=== PATIENT | male | born 1950 | race Caucasian/White ===

== ENCOUNTER 2020-11-11 00:34 | Inpatient (IN) | payer OTHER, MEDICAID ==
[~2020-11-11] VITALS: Ht 167.6 cm; Wt 83.5 kg
[2020-11-11] VITALS (37 sets, daily range): BP systolic 73–136; BP diastolic 48–89
[2020-11-11] MEDS ORDERED: PIPERACILLIN/TAZOBACTAM 3.375GM/50ML PREMIX IV ONE (01:00)
[2020-11-11] MEDS ORDERED: VANCOMYCIN 1 G PREMIX 200 ML IV SCH ×2 (01:00→12:00)
[2020-11-11] MEDS ORDERED: PIPERACILLIN/TAZ 3.375G PREMIX 50 ML IV NR (01:15)
[2020-11-11 01:24] LABS: HEMATOCRIT. 29.9 % (42.0-52.0); HEMOGLOBIN. 9.7 g/dL (14.0-18.0); MEAN CORPUSCULAR HEMOGLOBIN 29.6 pg (28.0-32.0); MEAN CORPUSCULAR VOLUME 91.7 fL (80.0-94.0); MEAN PLATELET VOLUME 8.9 fl (7.4-10.4); PLATELET 608 x1000/uL (130-400); RED BLOOD CELL COUNT 3.26 mill/uL (4.7-6.1); RED CELL DISTRIBUTION WIDTH 21.1 % (11.6-14.6)
[2020-11-11 01:29] LABS: CHLORIDE 108 mEq/L (98-107)
[2020-11-11 01:51] LABS: INR 1.2
[2020-11-11 02:08] LABS: BG BASE EXCESS -0.1 mmol/L (-2.0-2.0); BG CARBOXYHEMOGLOBIN 1.1 % (0.5-1.5); BG DEOXYHEMOGLOBIN 1.9 % (0.0-5.0); BG FRACTION INSPIRED OXYGEN 100; BG METHEMOGLOBIN 0.4 % (0.0-1.5); BG OXYGEN SATURATION 98.1 % (92.0-98.5); BG OXYHEMOGLOBIN 96.6 % (94.0-97.0); BG PCO2 85.3 mmHg (35.0-45.0); BG PH 7.164 (7.350-7.450); BG PO2 123.1 mmHg (75.0-100.0); BG SAMPLE SITE RIGHT RADIAL; BG TOTAL HEMOGLOBIN 10.4 g/dL (12.0-18.0); BG VENT MODE MASK - NRB
[2020-11-11] MEDS ORDERED: IOHEXOL-300 100 ML BOTTLE ONE (03:06)
[2020-11-11] MEDS ORDERED: SUCCINYLCHOLINE CHLORIDE 200MG/10ML IV ONE (03:15)
[2020-11-11] MEDS ORDERED: ETOMIDATE 2MG/ML 10ML VIAL IV ONE (03:15)
[2020-11-11 03:51] LABS: CLARITY URINE CLOUDY (CLEAR); COLOR URINE DARK YELLOW (YELLOW); KETONES URINE NEGATIVE (NEGATIVE); LEUKOCYTE ESTERASE URINE 1+ (NEGATIVE); NITRITE URINE POSITIVE (NEGATIVE); OCCULT BLOOD URINE 3+ (NEGATIVE); PH URINE 5.5 (4.5-8.0); PROTEIN URINE 1+ (NEGATIVE); SPECIFIC GRAVITY URINE 1.027 (1.005-1.030); UROBILINOGEN URINE 0.2 E.U./dL (0.2-1.0)
[2020-11-11] MEDS ORDERED: PROPOFOL 10MG/ML 100ML 100 ML IV SCH (04:15)
[2020-11-11 05:02] LABS: BG BASE EXCESS 0.2 mmol/L (-2.0-2.0); BG CARBOXYHEMOGLOBIN 0.9 % (0.5-1.5); BG FRACTION INSPIRED OXYGEN 50; BG METHEMOGLOBIN 0.2 % (0.0-1.5); BG OXYHEMOGLOBIN 94.9 % (94.0-97.0); BG PCO2 54.6 mmHg (35.0-45.0); BG PH 7.312 (7.350-7.450); BG SAMPLE SITE RIGHT RADIAL; BG VENT MODE VENT - AC
[2020-11-11] MEDS ORDERED: MIDAZOLAM HCL 2 MG/2 ML VIAL IV ONE ×2 (05:30→07:00)
[2020-11-11 08:12] LABS: NUCLEATED RED BLOOD CELLS 1 /100 WBC; PLATELET ESTIMATE INCREASED
[2020-11-11] MEDS ORDERED: FENTANYL CITRATE/PF 2,500 MCG in SODIUM CHLORIDE 0.9% 200 ML IV PRN ×2 (08:15→08:30)
[2020-11-11] MEDS ORDERED: MIDAZOLAM HCL 100 MG in SODIUM CHLORIDE 0.9% 80 ML IV PRN ×2 (08:15→08:30)
[2020-11-11] MEDS ORDERED: IPRATROPIUM/ALBUTEROL 0.5-3(2.5)MG/3ML NEB HHN PRN (09:15)
[2020-11-11] MEDS ORDERED: PIPERACILLIN/TAZOBACTAM 3.375 G in DEXT 5% WATER 100 ML IV SCH (10:00)
[2020-11-11] MEDS ORDERED: MICAFUNGIN 150 MG in SODIUM CHLORIDE 0.9% 100 ML IV SCH (10:00)
[2020-11-11] MEDS: PANTOPRAZOLE SODIUM 40 MG/VIAL IV SCH (10:18)
[2020-11-11] MEDS: IPRATROPIUM/ALBUTEROL 0.5-3(2.5)MG/3ML NEB HHN SCH ×3 (11:56→20:55)
[2020-11-11] MEDS: NOREPINEPHRINE 32 MG in DEXT 5% WATER 218 ML IV PRN (14:57)
[2020-11-11] MEDS: ACETYLCYSTEINE 100MG/ML 10% VIAL 4ML INH SCH (16:02)
[2020-11-11] MEDS: PIPERACILLIN/TAZOBACTAM 3.375 G in DEXT 5% WATER 100 ML IV SCH ×2 (18:50→23:24)
[2020-11-12] VITALS (61 sets, daily range): BP systolic 55–109; BP diastolic 38–73
[2020-11-12] MEDS: ACETYLCYSTEINE 100MG/ML 10% VIAL 4ML INH SCH ×3 (00:37→16:00)
[2020-11-12] MEDS: IPRATROPIUM/ALBUTEROL 0.5-3(2.5)MG/3ML NEB HHN SCH ×5 (00:38→16:00)
[2020-11-12] MEDS: PIPERACILLIN/TAZOBACTAM 3.375 G in DEXT 5% WATER 100 ML IV SCH ×2 (05:21→13:00)
[2020-11-12 06:14] LABS: HEMATOCRIT. 32.8 % (42.0-52.0); HEMOGLOBIN. 10.2 g/dL (14.0-18.0); MEAN CORPUSCULAR HEMOGLOBIN 29.4 pg (28.0-32.0); MEAN CORPUSCULAR VOLUME 94.7 fL (80.0-94.0); MEAN PLATELET VOLUME 9.4 fl (7.4-10.4); PLATELET 579 x1000/uL (130-400); RED BLOOD CELL COUNT 3.47 mill/uL (4.7-6.1)
[2020-11-12 06:19] LABS: CHLORIDE 109 mEq/L (98-107)
[2020-11-12] MEDS ORDERED: EPINEPHRINE 0.1MG/ML (1:10,000) 10ML SYR ONE (08:25)
[2020-11-12] MEDS ORDERED: SODIUM BICARBONATE 8.4% 1 MEQ/ML 50ML SYR IV ONE (08:25)
[2020-11-12] MEDS ORDERED: MICAFUNGIN 150 MG in SODIUM CHLORIDE 0.9% 100 ML IV SCH (09:00)
[2020-11-12 09:13] LABS: BG BASE EXCESS -3.1 mmol/L (-2.0-2.0); BG CARBOXYHEMOGLOBIN 1.3 % (0.5-1.5); BG DEOXYHEMOGLOBIN 1.2 % (0.0-5.0); BG FRACTION INSPIRED OXYGEN 40; BG HCO3 ACT 20.1 mmol/L (22.0-26.0); BG METHEMOGLOBIN 0.3 % (0.0-1.5); BG OXYGEN SATURATION 98.8 % (92.0-98.5); BG OXYHEMOGLOBIN 97.2 % (94.0-97.0); BG PCO2 30.2 mmHg (35.0-45.0); BG PO2 122.1 mmHg (75.0-100.0); BG SAMPLE SITE LEFT RADIAL; BG TOTAL HEMOGLOBIN 12.4 g/dL (12.0-18.0); BG TOTAL RESPIRATORY RATE 24 b/min
[2020-11-12] MEDS: PANTOPRAZOLE SODIUM 40 MG/VIAL IV SCH (09:43)
[2020-11-12] MEDS: PHENYLEPHRINE 100 MG in DEXT 5% WATER 240 ML IV PRN ×2 (11:24→16:51)
[2020-11-12 12:43] LABS: TOTAL IRON BINDING CAPACITY 175 ug/dL (250-450)
[2020-11-12] MEDS ORDERED: DILTIAZEM HCL 5MG/ML 5ML VIAL IV NR (12:45)
[2020-11-12] MEDS ORDERED: FOLIC ACID 1 MG, THIAMINE HCL 100 MG, MVI, ADULT NO.1 10 ML in DEXTROSE 5% WATER 1,000 ML IV SCH (14:00)
[2020-11-12] MEDS ORDERED: AMIODARONE HCL 150 MG in DEXT 5% WATER 100 ML IV SCH (14:00)
[2020-11-12] MEDS ORDERED: AMIODARONE HCL 900 MG in DEXT 5% WATER 482 ML IV PRN (14:00)
[2020-11-12 14:04] LABS: FERRITIN 229 ng/mL (22-322)
[2020-11-12 14:15] LABS: HEPATITIS B SURFACE ANTIGEN NEGATIVE
[2020-11-12 14:15] LABS: NUCLEATED RED BLOOD CELLS 2 /100 WBC; PLATELET ESTIMATE INCREASED
[2020-11-12] MEDS: NOREPINEPHRINE 32 MG in DEXT 5% WATER 218 ML IV PRN (14:16)
[2020-11-12 14:45] LABS: HEPATITIS A AB IGM NEGATIVE (NEGATIVE)
[2020-11-12 15:25] LABS: VITAMIN B12 SERUM >2000 pg/mL pg/mL (211-911)
[2020-11-12] MEDS ORDERED: VASOPRESSIN 20 UNIT in SODIUM CHLORIDE 0.9% 99 ML IV PRN (16:15)
[2020-11-12] MEDS ORDERED: DIGOXIN 500MCG/2ML AMP IV NR (16:15)
[2020-11-12] MEDS ORDERED: DOPAMINE 400MG/250ML PREMIX 250 ML IV PRN (17:15)
[2020-11-12] MEDS ORDERED: VANCOMYCIN 1 G PREMIX 200 ML IV SCH ×2 (23:00)
[2020-11-13] MEDS ORDERED: DEXT 5%/0.45% NACL 1000ML 1,000 ML IV SCH (03:00)
== END 2020-11-12 21:00 | DRG 871 ==
LOC: ER 00:34 → EDBEDREQ 04:07 → EDBEDREQSVC 04:07 → CVICU 05:34 → EDBEDREQ 05:36 → ENRESERV 12:54
PROVIDERS: ADMIT Internal Medicine; ATTEND Internal Medicine
PROC: 5A09357 Assistance with Respiratory Ventilation, Less than 24 Consecutive Hours, Continuous Positive Airway Pressure (ICD-10-PCS; principal; 2020-11-11)
PROC: 5A1945Z Respiratory Ventilation, 24-96 Consecutive Hours (ICD-10-PCS; 2020-11-11)
PROC: 0BH17EZ Insertion of Endotracheal Airway into Trachea, Via Natural or Artificial Opening (ICD-10-PCS; 2020-11-11)
PROC: 06HY33Z Insertion of Infusion Device into Lower Vein, Percutaneous Approach (ICD-10-PCS; 2020-11-11)
PROC: B54BZZA Ultrasonography of Right Lower Extremity Veins, Guidance (ICD-10-PCS; 2020-11-11)
PROC: 5A12012 Performance of Cardiac Output, Single, Manual (ICD-10-PCS; 2020-11-12)
DX: A41.9 Sepsis, unspecified organism (principal); E43 Unspecified severe protein-calorie malnutrition; J96.02 Acute respiratory failure with hypercapnia; J96.01 Acute respiratory failure with hypoxia; K75.0 Abscess of liver; R65.21 Severe sepsis with septic shock; J69.0 Pneumonitis due to inhalation of food and vomit; G93.41 Metabolic encephalopathy; B49 Unspecified mycosis; C16.9 Malignant neoplasm of stomach, unspecified; C22.9 Malignant neoplasm of liver, not specified as primary or secondary; C49.A0 Gastrointestinal stromal tumor, unspecified site; I47.1 Supraventricular tachycardia; I48.92 Unspecified atrial flutter; J44.0 Chronic obstructive pulmonary disease with (acute) lower respiratory infection; J98.11 Atelectasis; N39.0 Urinary tract infection, site not specified; T17.590A Other foreign object in bronchus causing asphyxiation, initial encounter; I46.9 Cardiac arrest, cause unspecified; D64.9 Anemia, unspecified; Z51.5 Encounter for palliative care; E11.9 Type 2 diabetes mellitus without complications; I10 Essential (primary) hypertension; X58.XXXA Exposure to other specified factors, initial encounter; Z85.831 Personal history of malignant neoplasm of soft tissue; Z86.73 Personal history of transient ischemic attack (TIA), and cerebral infarction without residual deficits; Z87.891 Personal history of nicotine dependence; Z95.828 Presence of other vascular implants and grafts; Y93.89 Activity, other specified; Y92.89 Other specified places as the place of occurrence of the external cause; Y99.8 Other external cause status; Z78.1 Physical restraint status; Z51.11 Encounter for antineoplastic chemotherapy; Z68.29 Body mass index [BMI] 29.0-29.9, adult
CPT/HCPCS: 36415; 36600; 71045; 74177; 80053; 80202; 81003; 82375; 82607; 82728; 82746; 82805; 82962; 83540; 83550; 83605; 84145; 84484; 85025; 86705; 86709; 86803; 87070; 87077; 87106; 87186; 87340; 93005; 94002; 94003; 94640; 94660; 99291; C9113; J0282; J1160; J1265; J2248; J2250; J2370; J2543; J2704; J3010; J3370; J3411; J3490; J7040; J7050; J7060; J7070; J7608; Q9967